=== PATIENT | female | born 1985 | race Caucasian/White ===

== ENCOUNTER 2019-12-22 06:53 | Inpatient (IN) ==
[2019-12-22] MEDS ORDERED: ONDANSETRON 4 MG/2 ML VIAL IV PRN ×2 (07:45→15:34)
[2019-12-22] MEDS ORDERED: ePHEDrine 50 MG/ML VIAL IV PRN (07:48)
[2019-12-22] MEDS ORDERED: CITRIC ACID/SODIUM CITRATE 30 ML UDCUP PO ONE (07:48)
[2019-12-22] MEDS ORDERED: NALOXONE 0.4 MG/ML VIAL IV PRN (07:48)
[2019-12-22] MEDS ORDERED: ONDANSETRON 4 MG/2 ML VIAL IV ONE (07:48)
[2019-12-22] MEDS ORDERED: LACTATED RINGERS 1,000 ML IV ONE (07:48)
[2019-12-22] MEDS ORDERED: diphenhydrAMINE 50 MG/1 ML VIAL IV PRN ×2 (07:48)
[2019-12-22] MEDS ORDERED: hydrOXYzine HCL 25 MG/1 ML VIAL IM PRN (07:48)
[2019-12-22] MEDS ORDERED: PROMETHAZINE 25 MG/1 ML VIAL IM ONE (07:48)
[2019-12-22] MEDS ORDERED: FAMOTIDINE 20 MG/2 ML VIAL IV ONE (07:48)
[2019-12-22] MEDS ORDERED: CITRIC ACID/SODIUM CITRATE 30 ML UDCUP ONE (07:50)
[2019-12-22] MEDS ORDERED: LACTATED RINGERS 1,000 ML IV SCH (08:00)
[2019-12-22] MEDS ORDERED: OXYTOCIN/LR 20 UNIT/1,000 ML BAG IV SCH (08:00)
[2019-12-22] MEDS ORDERED: fentaNYL 2 MCG/ROPIV 0.2% EPID 100 ML EPIDURAL SCH (08:00)
[2019-12-22 08:58] LABS: Basophils % 0.2 % (0.0-0.8); Eosinophils # 0.1 10*3/uL (0.0-0.87); Hematocrit 31.7 VOL% (35.7-47.0); Hemoglobin 10.3 GM/DL (12.0-16.0); Immature Granulocytes % 0.6 %; Immature Granulocytes Absolute 0.05 #; Lymphocytes # 1.6 10*3/uL (1.4-4.0); Lymphocytes % 19.8 % (21.3-54.2); Mean Corpuscular HGB Conc 32.5 GM/DL (32-36); Mean Platelet Volume 12.3 FL (9.6-12.0); Monocytes % 4.5 % (1.7-12.7); Neutrophils % 73.9 % (38.7-73.9); Platelet Count 146 T/CUMM (130-400); Red Blood Count 3.56 MC/CUMM (3.8-5.5); Red Cell Distribution Width 14.3 % (9.3-17.3); White Blood Count 8.2 T/CUMM (4-12)
[2019-12-22 11:20] LABS: Bilirubin,Urine Negative (Negative); Blood, Urine Negative (Negative); Glucose,Urine (UA) Negative (Negative); Ketones,Urine Negative (Negative); Mucus,Urine Occasional /LPF (Occasional); Nitrite,Urine Negative (Negative); Protein,Urine Negative; RBC,Urine <1 /HPF (0-4); Squamous Epithelial Cell,Urine Occasional /HPF (0-10); Urine Appearance CLEAR (Clear); Urine Color Yellow (Yellow); Urine Specific Gravity 1.005 (1.001-1.035); Urine Urobilinogen < 2.0 EU/DL (0.2-1.0); WBC,Urine <1 /HPF (0-6)
[2019-12-22] MEDS ORDERED: METHYLERGONOVINE 0.2 MG/1 ML AMP ONE (14:26)
[2019-12-22] MEDS ORDERED: miSOPROStoL 200 MCG TABLET ONE (14:26)
[2019-12-22] MEDS ORDERED: CARBOPROST TROMETHAMINE 250 MCG/ML AMP IM ONE (14:26)
[2019-12-22] MEDS ORDERED: TRANEXAMIC ACID 1,000 MG/10 ML VIAL ONE (14:26)
[2019-12-22] MEDS ORDERED: LIDOCAINE 1% 50 ML VIAL ONE (14:27)
[2019-12-22] MEDS ORDERED: SODIUM CHLORIDE 0.9% 0 ML IV ONE (14:27)
[2019-12-22] MEDS ORDERED: miSOPROStoL 200 MCG TABLET PO ONE (15:01)
[2019-12-22] MEDS ORDERED: METHYLERGONOVINE 0.2 MG/1 ML AMP IM ONE (15:01)
[2019-12-22 15:22] LABS: Cord Venous Blood HCO3 18.6 MMOL/L; Cord Venous Blood PCO2 27.1 MMHG; Cord Venous Blood PO2 35.5 MMHG
[2019-12-22] MEDS ORDERED: HYDROCORTISONE 2.5% RECTAL CREAM 30 GM TUBE TOP PRN (15:34)
[2019-12-22] MEDS ORDERED: LANOLIN 50% CREAM 0.3 OZ TUBE TOP PRN (15:34)
[2019-12-22] MEDS ORDERED: BISACODYL 10 MG SUPP RECTAL PRN (15:34)
[2019-12-22] MEDS ORDERED: BENZOCAINE 20%/MENTHOL 0.5% SPRAY 56 GM CAN TOP PRN (15:34)
[2019-12-22] MEDS ORDERED: RHO(D) IMMUNE GLOBULIN 300 MCG SYRINGE IM ONE (15:34)
[2019-12-22] MEDS ORDERED: oxyCODONE/ACETAMINOPHEN 5-325 MG TABLET PO PRN ×2 (15:34)
[2019-12-22] MEDS ORDERED: WITCH HAZEL PADS 100/JAR TOP PRN (15:34)
[2019-12-22] MEDS ORDERED: ACETAMINOPHEN 325 MG TABLET PO PRN (15:34)
[2019-12-22] MEDS ORDERED: OXYTOCIN/LR 20 UNIT/1,000 ML BAG IV ONE (15:34)
[2019-12-22] MEDS ORDERED: DIPH/TET/ACEL PERT BOOSTER VACCINE 0.5 ML VIAL IM ONE (15:34)
[2019-12-22] MEDS ORDERED: MEASLES/MUMPS/RUBELLA VACCINE 0.5 ML VIAL SUBCUT ONE (15:34)
[2019-12-22] MEDS: IBUPROFEN 800 MG TABLET PO PRN (18:09)
[2019-12-22] MEDS: DOCUSATE SODIUM 100 MG CAPSULE PO SCH (22:38)
[2019-12-23] MEDS: IBUPROFEN 800 MG TABLET PO PRN ×2 (03:55→17:47)
[2019-12-23 06:36] LABS: Basophils % 0.2 % (0.0-0.8); Eosinophils # 0.1 10*3/uL (0.0-0.87); Eosinophils % 0.7 % (0.00-10.9); Hematocrit 33.9 VOL% (35.7-47.0); Immature Granulocytes % 0.4 %; Immature Granulocytes Absolute 0.05 #; Lymphocytes # 1.6 10*3/uL (1.4-4.0); Lymphocytes % 14.5 % (21.3-54.2); Mean Corpuscular HGB Conc 32.4 GM/DL (32-36); Mean Corpuscular Volume 89.2 FL (87-102); Mean Platelet Volume 12.3 FL (9.6-12.0); Monocytes % 5.7 % (1.7-12.7); Neutrophils % 78.5 % (38.7-73.9); Platelet Count 131 T/CUMM (130-400); Red Cell Distribution Width 14.4 % (9.3-17.3); White Blood Count 11.3 T/CUMM (4-12)
[2019-12-23] MEDS: ACETAMINOPHEN/CODEINE 300-30 MG TABLET PO PRN ×2 (09:55→17:47)
[2019-12-23] MEDS: DOCUSATE SODIUM 100 MG CAPSULE PO SCH ×2 (09:55→21:18)
[2019-12-23] MEDS ORDERED: POLYETHYLENE GLYCOL POWDER 17 GM PACK PO PRN (16:52)
[2019-12-24] MEDS: IBUPROFEN 800 MG TABLET PO PRN ×2 (04:10→10:34)
[2019-12-24 08:50] VITALS: BP 129/67
[2019-12-24] MEDS: DOCUSATE SODIUM 100 MG CAPSULE PO SCH (10:15)
== END 2019-12-24 12:15 | disposition home or self-care (01) | DRG 768 ==
LOC: N.LDOUT 06:53 → N.LD 06:54 → N.OB 18:18
PROVIDERS: ADMIT Obstetrics & Gynecology; ATTEND Obstetrics & Gynecology